=== PATIENT | female | born 1990 | race Caucasian/White ===

== ENCOUNTER 2017-05-05 22:11 | Emergency (ER) | payer BC ==
[~2017-05-05] VITALS: Ht 160 cm; Wt 70.7 kg
[2017-05-05] MEDS ORDERED: HYDROmorphone 1 mg/ml syringe IV PRN (23:05)
[2017-05-05] MEDS ORDERED: ondansetron/PF 4mg/2ml inj IV ONE (23:05)
[2017-05-05] MEDS ORDERED: piperacillin/tazo 3.375gm/50ml 50 ML IV ONE (23:05)
[2017-05-05] MEDS ORDERED: HYDROmorphone inj. 0.5 MG/0.5 ML DISP.SYRIN ONE (23:14)
[2017-05-05] MEDS ORDERED: iohexol 300mg/ml 100ml inj. ONE (23:44)
[2017-05-06] MEDS ORDERED: HYDROmorphone inj. 0.5 MG/0.5 ML DISP.SYRIN ONE ×2 (01:04→01:31)
[2017-05-06] MEDS ORDERED: HYDR-3965 PO (01:18)
[2017-05-06] MEDS ORDERED: AMOX-580 PO (01:18)
[2017-05-06] MEDS ORDERED: ONDA4TAB9 PO (01:18)
[2017-05-06 02:02] VITALS: BP 128/62
== END 2017-05-06 02:07 | disposition home or self-care (01) ==
LOC: ER 22:12
DX: H66.92 Otitis media, unspecified, left ear (principal); Z79.899 Other long term (current) drug therapy
CPT/HCPCS: 70482; 96365; 96375; 96376; 99284; J1170; J2405; J2543; J7030; Q9967